=== PATIENT | male | born 1995 | race Caucasian/White ===

== ENCOUNTER 2021-12-09 05:47 | Day surgery (SDC) | payer OTHER, SELFPAY ==
--- NOTE | 2021-11-05 15:57 | NURSING ---
in PAT interview, pt states he has COVID symptoms and tested (+) on 10/31/21. Brenna at Dr Sue's office informed. Brenna states pt's surgery will be cancelled. Brenna states she will notify Dr Sue and Mary. Mary will notify pt.
[2021-12-09] VITALS (9 sets, daily range): BP systolic 100–121; BP diastolic 66–86; PULSE 67–87; RESP 14–16; TEMP 36.1–36.9; O2SAT 93–100; BMI 25.2
--- NOTE | 2021-12-09 06:33 | HP.PCM_ITS ---
History and Physical Date of Admission: 12/09/21 Intake Intake Visit Reasons: INGUINAL HERNIA Allergies cefaclor [From Ceclor] Allergy (Verified 10/01/21 08:32) Anaphylaxis Sulfa (Sulfonamide Antibiotics) Allergy (Verified 10/01/21 08:32) Anaphylaxis Medications NK 10/01/21 [History Confirmed 10/01/21] [facility] Medical History (Updated 10/01/21 @ 08:[address] David Sue MD) Left groin pain Surgical History (Updated 10/01/21 @ 08:29 by Kileymonday) History of adenoidectomy Hx of tonsillectomy Social History (Updated 10/01/21 @ 08:29 by Kiley Monday) Smoking Status: Never smoker alcohol intake: never substance use type: does not use HPI HPI HPI: INES IRVIN, is a 26 M who presents to the office today for left groin bulging. Patient reports that his left groin has been bulging for the last year and is becoming worse and larger and now is shooting pain down his leg and up into his left lower quadrant. Patient does not note any nausea or vomiting. No symptoms on the opposite side. Patient has never had surgery in the abdomen and the hernia has never become incarcerated. ROS General General: No weight change, appetite, fatigue, colon cancer, breast cancer or weakness HEENT HEENT: No difficulty swallowing, eye injury, eye surgery, swollen glands or hoarseness Endo Endocrine: No thyroid disease, diabetes mellitus, thyroid cancer, Hair loss, heat intolerance or cold intolerance Skin Skin: No rash or changing moles Musc Musculoskeletal: No back problems, arthritis, rheumatoid arthritis, gout or joint pain Cardio Cardiovascular: No murmur, pacemaker, heart disease, atrial fibrillation, high blood pressure, heart attack, heart stent, palpitations, shortness of breat with exertion or chest pain Psych Psychiatric: No depression, anxiety or hearing voices Resp Respiratory: No shortness of breath, No sleep apnea, No cough, No COPD, No asthma, No emphysema and No wheezing Gastro Gastrointestinal: No abdominal pain, No nausea or vomiting, No diarrhea, No constipation, No blood in stool, No acid reflux, No hemorrhoids, No ulcers, No gallbladder problem and No black,tarry stools Additional Details: Pt states has L sided groin pain radiating into lower abd. Ralf Hematologic: No blood thinners, No blood disorders, No bleeding, No anemia and No blood clots Neuro Neurologic: No system reviewed and no additional complaints, except as documented, No as per HPI, No abnormal gait, No abnormal hearing, No abnormal movements, No abnormal speech, No behavioral changes, No burning sensations, No confusion, No convulsions, No disequilibrium, No dizziness, No localized weakness, No frequent falls, No headache(s), No lack of coordination, No loss of vision, No memory loss, No numbness, No other visual disturbances, No radicular pain, No restless legs, No sensory deficit, No syncope, No tingling, No tremor(s), No weakness and No other Exam Const General: cooperative Orientation: alert and oriented x3 HENMT Head: normal to inspection Neck Neck: normal visual inspection and full ROM Chest Chest palpation & inspection: normal inspection of the chest Resp Effort & Inspection: normal respiratory effort Auscultation: clear to auscultation bilaterally Cardio Rate: regular rate Rhythm: regular rhythm GI Inspection: non-distended Palpation: soft, hernia direct inguinal on the left and nontender Skin General: no rashes or lesions noted Neuro General: patient alert and patient oriented x3 Extrem General: full ROM Psych Appearance: grossly normal Mental Status: mental status grossly normal Assessment and Plan Assessment and Plan (1) Left inguinal hernia: Status: Acute Plan - Dr. David Sue MD: Patient has left inguinal hernia. I discussed robotic assisted laparoscopic inguinal hernia repair with the patient. I discussed the procedure in detail. I discussed the risks including not limited to bleeding, infection, injury to surrounding organs such as the bowel or bladder or blood supply to the testicle. I also described mesh placement in detail as well as possibility of chronic groin pain. Patient understands the risks and is willing to proceed with ro botic assisted left inguinal hernia repair with mesh. I discussed contralateral repair if there is a hernia present on the right side he would like this repaired if possible. David Sue MD Pager: [facility] [address] [place] [address], [address] [place] [address] Office: I have seen and reexamined the patient and there are no changes since last exam.
[2021-12-09] MEDS: Lactated Ringers 1,000 ML 15 ML IV ×3 (06:39→12:11)
[2021-12-09] MEDS: Bupivacaine Mpf 0.5% 30 ML VIAL (08:28)
--- NOTE | 2021-12-09 08:34 | DCINST_ITS ---
Discharge Instructions Procedure Hernia Diet Discharge Diet: Light diet - advance as tolerated Activity Discharge Activity: May Not Drive (for 2-3 days or while taking narcotic pain meds.) and May Shower (with the bandage in place 1-2 days after surgery.) Lifting Restrictions: 20 pounds for 4 weeks. Additional Activity Instructions:: Climbing stairs is fine, walking is encouraged. Sitting in bed may be uncomfortable. Sitting up using your lateral muscles (sitting up sideways) is usually more comfortable. Do not drive, work heavy equipment of sign legal documents for 24 hours. If your hernia repair was an ingunial repair, you may have scrotal swelling, an ice pack and/or athletic support can provide more comfort. Pain medications may cause nausea, you should typically eat light foods as you take your pain medications. Pain medications may also cause constipation. If you have difficulty with this, discuss with your doctor. Dressing / Incision Call your doctor if your incision/area has: Continuous Slow Oozing, Sudden Increased Bleeding, Increased Pain/ Swelling, Increased Redness and Foul Smelling Discharge Call your doctor if you observe: Fever of 101 or Higher Suture Line Care: Avoid Pulling/Pushing and Avoid Pinching/Bending Remove Dressing in: 2 days (Remove bandage in 2 days, remove steri strips in 7- 10 days) Cleanse incision/area with: Soap & Water Follow Up Care Please Follow Up With: David Sue MD When: Please call to schedule 2 week follow up appointment. [phone] Test Results: Test results from this visit will be discussed in further detail at your follow-up appointment, if applicable. Discharge Plan Admission Attending Provider: David Sue Primary Care Provider: Hung Sanford Discharge Orders/Prescriptions Prescriptions: New oxycodone-acetaminophen [Percocet] 5-325 mg tablet 1 tab PO Q6H PRN (Reason: pain) 5 Days Qty: 10 RF: 0 Referrals / Follow Up: Hung Sanford MD [Primary Care Provider] - Disposition Disposition (needs filled in before D/C Order can be placed): Home, Self Care
--- NOTE | 2021-12-09 10:22 | PCM.OPRPT ---
Problems Associated Problem List Diagnoses (1) Left inguinal hernia: Report of Operation Date of Procedure: 12/09/21 Pre-Operative Diagnosis: Left inguinal hernia Post-Operative Diagnosis: Inguinal hernia Surgery/Procedure Performed:: Robotic assisted laparoscopic left inguinal hernia repair with mesh Description of Procedure: Patient was brought back to the operating room and general anesthesia was induced. The abdomen was prepped and draped in usual sterile fashion. An incision was made superior to the umbilicus and the fascia was elevated and incised. A port was then placed into the abdomen and the abdomen was insufflated 15 mmHg. Next the patient was placed in Trendelenburg position and under direct supervision a right lateral and left lateral 8 mm port were placed. The robot was then docked. The left peritoneum was incised using electrocautery scissors and dissection was carried inferiorly until the hernia sac was reduced fully from its lateral adhesions. Dissection was carried posteriorly until there was large enough pocket for the mesh. A progrip mesh was then placed into the left inguinal region and unfolded over the hernia completely covering the defect with good coverage all-around. The peritoneum was then reapproximated over the mesh using a running 3 OV lock suture. The peritoneum completely cover the mesh at the end of the procedure. Next the robot was undocked and the abdomen was left desufflate. A 0 Vicryl suture was placed in the midline incision fascia and the rest of the incisions were injected with local anesthetic and the skin was closed with interrupted 4-0 Monocryl sutures. Steri-Strips and bandages were applied. Scrotum was checked at the end the case and both testicles were present. Patient was awoken and taken to PACU in stable condition and tolerated the procedure well. Grafts/Implants Used: ProGrip mesh in the left inguinal region Admit VTE Documentation VTE Mechan Device Prophylaxis: SCD's
== END 2021-12-09 23:59 | disposition home or self-care (01) ==
LOC: SDC 05:53 → AC 05:54
PROVIDERS: PCP Family Medicine; Referring Provider Surgery; Visit Provider Surgery
PROC: 0YQ64ZZ Repair Left Inguinal Region, Percutaneous Endoscopic Approach (ICD-10-PCS; CPT 49650; principal; 2021-12-09 07:10)
DX: K40.90 Unilateral inguinal hernia, without obstruction or gangrene, not specified as recurrent (principal); K21.9 Gastro-esophageal reflux disease without esophagitis
CPT/HCPCS: 49650; S2900; 00830; J7120; J2405